=== PATIENT | male | born 1950 | race Caucasian/White ===

== ENCOUNTER 2017-08-05 03:56 | Inpatient (IN) | payer MEDICARE, MEDICAID ==
[~2017-08-05] VITALS: Ht 177.8 cm; Wt 59.1 kg
[~2017-08-05 03:56] MED LIST: FER300L PO; MAGN400C PO; OXYC-658 PO; POLY255P2 PO; TEMA15CA PO; URSO300C2 PO
[2017-08-05] MEDS ORDERED: normal saline 1000ML IV soln IVB ONE ×2 (04:00→07:45)
[2017-08-05 04:28] LABS: BASOPHILS % (AUTO) 0.1 % (0-1); EOSINOPHILS % (AUTO) 0.5 % (0-6); HEMATOCRIT 38.3 % (42.0-52.0); HEMOGLOBIN 13.3 g/dl (14.0-17.9); LYMPHOCYTES # (AUTO) 0.5 X10'3 (1.1-4.8); LYMPHOCYTES % (AUTO) 6.3 % (21-51); MEAN CORPUSCULAR HEMOGLOBIN 32.9 PG (27.0-31.0); MEAN CORPUSCULAR HGB CONC 34.8 % (33.0-36.5); MEAN CORPUSCULAR VOLUME 94.7 FL (78-98); MEAN PLATELET VOLUME 9.4 FL (7.4-10.4); MONOCYTES # (AUTO) 0.7 X10'3 (0-0.9); MONOCYTES % (AUTO) 9.4 % (2-12); NEUTROPHILS # (AUTO) 6.6 X10'3 (1.8-7.7); NEUTROPHILS % (AUTO) 83.7 % (42-75); PLATELET COUNT 130 X10'3 (140-440); RED BLOOD COUNT 4.04 X10'6 (4.70-6.10); RED CELL DISTRIBUTION WIDTH 15.9 % (11.5-14.5); WHITE BLOOD COUNT 7.9 X10'3 (4.5-11.0)
[2017-08-05 04:42] LABS: INR 1.5 INR; PARTIAL THROMBOPLASTIN TIME 37 SECONDS (22-32); PROTHROMBIN TIME 15.7 SECONDS (9.0-12.0)
[2017-08-05 04:54] LABS: ALANINE AMINOTRANSFERASE 99 U/L (12-78); ALBUMIN 2.8 G/DL (3.4-5.0); BILIRUBIN,TOTAL 24.2 MG/DL (0.1-1.0); CALCIUM 9.1 MG/DL (8.5-10.1); LDL CHOLESTEROL 109 MG/DL (50-100); LIPASE 272 U/L (73-393); MAGNESIUM 2.5 MG/DL (1.5-2.4); TOTAL CARBON DIOXIDE 18.8 MMOL/L (24-32)
[2017-08-05 05:15] LABS: ALBUMIN/GLOBULIN RATIO 0.6 (1.1-1.5); ALKALINE PHOSPHATASE 175 IU/L (46-116); ASPARTATE AMINO TRANSFERASE 165 U/L (10-37); CREATININE 2.68 MG/DL (0.60-1.10); GLUCOSE 80 MG/DL (70-104); TOTAL PROTEIN 7.2 G/DL (6.4-8.2); TRIGLYCERIDES 125 MG/DL (20-135); eGFR 24 ML/MIN
[2017-08-05 05:23] LABS: LACTIC SEPSIS 2.3 MMOL/L (0.4-2.0)
[2017-08-05] MEDS ORDERED: normal saline 1000ML IV soln IV ONE (05:25)
[2017-08-05] MEDS ORDERED: piperacillin/tazo 3.375gm/50ml 50 ML IV ONE (05:25)
[2017-08-05] MEDS ORDERED: vancomycin/NS 1 GM ADD-VANTAGE 250 ML IV ONE (05:25)
[2017-08-05 05:45] LABS: ANION GAP 25 (8-16); BLOOD UREA NITROGEN 160 MG/DL (7-18); BUN/CREATININE RATIO 59.7 (5.4-32.0); CHLORIDE 83 MMOL/L (99-107); CHOLESTEROL 91 MG/DL (0-200); HDL CHOLESTEROL 13 MG/DL (35-60); POTASSIUM 5.8 MMOL/L (3.5-5.1); SODIUM 127 MMOL/L (135-145)
[2017-08-05] MEDS ORDERED: sodium polystyrene sulfonate 15gm/60ml oral suspension PO ONE (06:00)
[2017-08-05] MEDS ORDERED: furosemide 40mg/4ml inj IV ONE (06:00)
[2017-08-05] MEDS ORDERED: dextrose 50%-water 50ml dispensing syringe IV ONE (06:00)
[2017-08-05] MEDS ORDERED: calcium chloride 100 MG/1 ML inj IV ONE ×2 (06:00→10:00)
[2017-08-05] MEDS ORDERED: sodium bicarbonate (0.9mEq/ml) 44.6 mEq/50ml syringe IV ONE (06:00)
[2017-08-05] MEDS ORDERED: insulin regular, human 10 units/0.1 ml syringe IV ONE (06:00)
[2017-08-05 07:00] LABS: CLARITY,URINE CLEAR (Clear); COLOR,URINE YELLOW (Yellow); GLUCOSE, URINE NEGATIVE (Neg); KETONES,URINE NEGATIVE (Neg); LEUKOCYTE ESTERASE ,URINE NEGATIVE (Neg); NITRITES, URINE NEGATIVE (Neg); OCCULT BLOOD,URINE SMALL (Neg); PROTEIN,URINE NEGATIVE (Neg); UROBILINOGEN,URINE 0.2 E.U/dL (0.2-1.0)
[2017-08-05 07:07] LABS: UA COLLECTION TYPE URINAL
[2017-08-05 07:08] LABS: BACTERIA,URINE FEW /HPF (Neg); MUCUS STRANDS FEW /LPF (Neg); RBC,URINE NONE SEEN /HPF (0-2); SQUAMOUS EPITHELIAL CELL,UR FEW /LPF (FEW); TRANSITIONAL EPI CELLS,URINE MODERATE /HPF; WBC,URINE 0-4 /HPF (0-4)
[2017-08-05] MEDS ORDERED: potassium Cl 20 mEq SR tablet PO PRN ×2 (08:10)
[2017-08-05] MEDS ORDERED: ondansetron/PF 4mg/2ml inj IV PRN (08:10)
[2017-08-05] MEDS ORDERED: magnesium hydroxide 30ml (MOM) UD suspension PO PRN (08:10)
[2017-08-05] MEDS: K, MAG and/or Phos replacement - Verify level? MC SCH (08:10)
[2017-08-05] MEDS ORDERED: LORazepam 2 mg/ml vial IV PRN (08:20)
[2017-08-05 09:34] LABS: CREATININE,URINE RANDOM 58.9 MG/DL; SODIUM,URINE RANDOM < 15 MEQ/L; TOTAL PROTEIN,URINE RANDOM 31.9 MG/DL
[2017-08-05 09:40] LABS: CLARITY,URINE CLEAR (Clear); COLOR,URINE YELLOW (Yellow); GLUCOSE, URINE NEGATIVE (Neg); KETONES,URINE NEGATIVE (Neg); LEUKOCYTE ESTERASE ,URINE NEGATIVE (Neg); NITRITES, URINE NEGATIVE (Neg); OCCULT BLOOD,URINE TRACE-INTACT (Neg); PROTEIN,URINE NEGATIVE (Neg); UROBILINOGEN,URINE 0.2 E.U/dL (0.2-1.0)
[2017-08-05 09:52] LABS: UA COLLECTION TYPE URINAL
[2017-08-05 09:54] LABS: BACTERIA,URINE FEW /HPF (Neg); MUCUS STRANDS FEW /LPF (Neg); RBC,URINE 0-2 /HPF (0-2); SQUAMOUS EPITHELIAL CELL,UR FEW /LPF (FEW)
[2017-08-05] MEDS ORDERED: sodium bicarbonate (8.4%) 1 mEq/ml syringe ONE (10:00)
[2017-08-05 11:30] VITALS: BP 81/49
[2017-08-05] MEDS: normal saline 1000ml 1,000 ML IV SCH ×2 (13:00→21:26)
[2017-08-05] MEDS ORDERED: OXYC10TA57 PO (13:27)
[2017-08-05 13:44] VITALS: BP 88/75
[2017-08-05] MEDS ORDERED: nitroGLYCERIN 0.4mg SUBLingual tab SL PRN (14:00)
[2017-08-05] MEDS ORDERED: FLU VACC QS2017-18 36MOS UP/PF 60 MCG/0.5 ML SYRINGE IMVAC ONE (14:00)
[2017-08-05] MEDS ORDERED: proCHLORperazine 10 MG/2 ml inj IV PRN (14:00)
[2017-08-05] MEDS ORDERED: OXAZEpam 15mg capsule PO PRN (14:00)
[2017-08-05 16:00] VITALS: BP 87/53
[2017-08-05] MEDS: piperacillin-tazo 2.25gm/50ml 50 ML IV SCH ×2 (16:00→23:57)
[2017-08-05 19:00] VITALS: BP 80/48
[2017-08-05] MEDS: docusate sod 100mg capsule PO SCH (20:00)
[2017-08-05] MEDS: sennosides/docusate sodium tablet PO SCH (20:00)
[2017-08-06 05:29] LABS: BASOPHILS % (AUTO) 0.9 % (0-1); EOSINOPHILS % (AUTO) 1.6 % (0-6); HEMATOCRIT 31.2 % (42.0-52.0); HEMOGLOBIN 10.9 g/dl (14.0-17.9); LYMPHOCYTES # (AUTO) 0.5 X10'3 (1.1-4.8); LYMPHOCYTES % (AUTO) 15.7 % (21-51); MEAN CORPUSCULAR VOLUME 94.3 FL (78-98); MONOCYTES # (AUTO) 0.4 X10'3 (0-0.9); MONOCYTES % (AUTO) 12.3 % (2-12); NEUTROPHILS # (AUTO) 2.1 X10'3 (1.8-7.7); NEUTROPHILS % (AUTO) 69.5 % (42-75); PLATELET COUNT 72 X10'3 (140-440); RED CELL DISTRIBUTION WIDTH 16.1 % (11.5-14.5)
[2017-08-06 06:00] VITALS: BP 96/62
[2017-08-06 06:35] LABS: ALANINE AMINOTRANSFERASE 82 U/L (12-78); ALBUMIN/GLOBULIN RATIO 0.6 (1.1-1.5); ALKALINE PHOSPHATASE 127 IU/L (46-116); ANION GAP 15 (8-16); ASPARTATE AMINO TRANSFERASE 116 U/L (10-37); BILIRUBIN,TOTAL 17.8 MG/DL (0.1-1.0); BLOOD UREA NITROGEN 110 MG/DL (7-18); BUN/CREATININE RATIO 55.8 (5.4-32.0); CALCIUM 8.3 MG/DL (8.5-10.1); CHLORIDE 106 MMOL/L (99-107); CREATININE 1.97 MG/DL (0.60-1.10); GLUCOSE 94 MG/DL (70-104); PHOSPHORUS 4.7 MG/DL (2.3-4.5); SODIUM 137 MMOL/L (135-145); TOTAL CARBON DIOXIDE 15.9 MMOL/L (24-32); TOTAL PROTEIN 5.6 G/DL (6.4-8.2); eGFR 34 ML/MIN
[2017-08-06 06:55] LABS: ACANTHOCYTES 1+; ANISOCYTOSIS 1+; BURR CELLS 2+; PLATELET ESTIMATE DECREASED
[2017-08-06] MEDS: pantoprazole 40mg Tablet.DR PO SCH (07:28)
[2017-08-06] MEDS: LACTOBACILLUS RHAMNOSUS GG 15 billion unit sprinkle caps PO SCH (07:28)
[2017-08-06] MEDS: sennosides/docusate sodium tablet PO SCH ×2 (07:29→19:18)
[2017-08-06] MEDS: docusate sod 100mg capsule PO SCH ×2 (07:29→19:18)
[2017-08-06] MEDS: K, MAG and/or Phos replacement - Verify level? MC SCH (07:31)
[2017-08-06] MEDS: piperacillin-tazo 2.25gm/50ml 50 ML IV SCH ×2 (07:46→15:36)
[2017-08-06] MEDS: normal saline 1000ml 1,000 ML IV SCH (10:46)
[2017-08-06 19:00] VITALS: BP 95/63
[2017-08-07] MEDS: normal saline 1000ml 1,000 ML IV SCH ×2 (00:06→12:41)
[2017-08-07] MEDS: LACTOBACILLUS RHAMNOSUS GG 15 billion unit sprinkle caps PO SCH (07:20)
[2017-08-07] MEDS: pantoprazole 40mg Tablet.DR PO SCH (07:20)
[2017-08-07] MEDS: K, MAG and/or Phos replacement - Verify level? MC SCH (07:21)
[2017-08-07] MEDS: docusate sod 100mg capsule PO SCH ×2 (07:21→20:00)
[2017-08-07] MEDS: sennosides/docusate sodium tablet PO SCH ×2 (07:21→20:00)
[2017-08-07] MEDS: piperacillin-tazo 2.25gm/50ml 50 ML IV SCH ×3 (08:00→16:00)
[2017-08-07] MEDS ORDERED: polyethylene glycol 3350 17gm powd pack PO PRN (08:10)
[2017-08-07 08:21] VITALS: BP 138/77
[2017-08-07] MEDS ORDERED: lactulose 20gm/30ml cup PO ONE (09:30)
[2017-08-07 20:00] VITALS: BP 111/54
[2017-08-08] MEDS: piperacillin-tazo 2.25gm/50ml 50 ML IV SCH ×3 (00:19→16:00)
[2017-08-08] MEDS: normal saline 1000ml 1,000 ML IV SCH ×2 (00:20→16:06)
[2017-08-08] MEDS: morphine 10mg/0.5ml (conc. morphine) oral syringe PO PRN ×3 (04:31→20:32)
[2017-08-08 07:28] VITALS: BP 90/46
[2017-08-08] MEDS: pantoprazole 40mg Tablet.DR PO SCH (07:30)
[2017-08-08] MEDS: LACTOBACILLUS RHAMNOSUS GG 15 billion unit sprinkle caps PO SCH (07:30)
[2017-08-08] MEDS: sennosides/docusate sodium tablet PO SCH ×2 (08:00→20:00)
[2017-08-08] MEDS: docusate sod 100mg capsule PO SCH ×2 (08:00→20:00)
[2017-08-08] MEDS: K, MAG and/or Phos replacement - Verify level? MC SCH (08:00)
[2017-08-08 12:12] VITALS: BP 119/62
[2017-08-08] MEDS ORDERED: LORazepam 2 mg/ml vial IV PRN (12:45)
[2017-08-08 20:00] VITALS: BP 129/49
[2017-08-09] MEDS: morphine 10mg/0.5ml (conc. morphine) oral syringe PO PRN ×7 (01:23→23:49)
[2017-08-09] MEDS: normal saline 1000ml 1,000 ML IV SCH ×2 (05:26→06:05)
[2017-08-09] MEDS: sennosides/docusate sodium tablet PO SCH (06:04)
[2017-08-09] MEDS: K, MAG and/or Phos replacement - Verify level? MC SCH (06:04)
[2017-08-09] MEDS: docusate sod 100mg capsule PO SCH (06:04)
[2017-08-09] MEDS: pantoprazole 40mg Tablet.DR PO SCH (06:05)
[2017-08-09] MEDS: LACTOBACILLUS RHAMNOSUS GG 15 billion unit sprinkle caps PO SCH (06:05)
[2017-08-09] MEDS: piperacillin-tazo 2.25gm/50ml 50 ML IV SCH ×3 (06:06→06:07)
[2017-08-09 07:24] VITALS: BP 85/48
[2017-08-09 11:13] LABS: HBSAG SCREEN Negative (Negative); HEP A AB, IGM Negative (Negative); HEP B CORE AB, IGM Negative (Negative); HEPATITIS C ANTIBODY >11.0 s/co ratio (0.0-0.9)
[2017-08-09 20:00] VITALS: BP 108/55
[2017-08-10] MEDS: morphine 10mg/0.5ml (conc. morphine) oral syringe PO PRN ×5 (02:56→20:39)
[2017-08-10] MEDS: LORazepam 1 MG tablet PO PRN (04:31)
[2017-08-10 07:15] VITALS: BP 87/55
[2017-08-10] MEDS ORDERED: methylnaltrexone br 12mg/0.6ml inj***SubQ only SQ SCH (08:00)
[2017-08-10 18:00] VITALS: BP 93/54
[2017-08-11] MEDS: morphine 10mg/0.5ml (conc. morphine) oral syringe PO PRN ×3 (00:20→21:40)
[2017-08-11 10:27] LABS: ALANINE AMINOTRANSFERASE 78 U/L (12-78); ALBUMIN/GLOBULIN RATIO 0.5 (1.1-1.5); ALKALINE PHOSPHATASE 152 IU/L (46-116); ANION GAP 11 (8-16); ASPARTATE AMINO TRANSFERASE 140 U/L (10-37); BILIRUBIN,TOTAL 18.6 MG/DL (0.1-1.0); BLOOD UREA NITROGEN 63 MG/DL (7-18); BUN/CREATININE RATIO 56.8 (5.4-32.0); CALCIUM 9.2 MG/DL (8.5-10.1); CHLORIDE 117 MMOL/L (99-107); CREATININE 1.11 MG/DL (0.60-1.10); GLUCOSE 93 MG/DL (70-104); POTASSIUM 4.9 MMOL/L (3.5-5.1); SODIUM 146 MMOL/L (135-145); TOTAL CARBON DIOXIDE 18.1 MMOL/L (24-32); TOTAL PROTEIN 5.7 G/DL (6.4-8.2); eGFR 67 ML/MIN
[2017-08-11 20:00] VITALS: BP 91/62
[2017-08-12] MEDS: LORazepam 1 MG tablet PO PRN (02:48)
[2017-08-12 08:00] VITALS: BP 85/55
[2017-08-12] MEDS: morphine 10mg/0.5ml (conc. morphine) oral syringe PO PRN ×2 (11:50→17:40)
[2017-08-12 20:00] VITALS: BP 97/50
[2017-08-13] VITALS: BP 93/59
[2017-08-13] MEDS: morphine 10mg/0.5ml (conc. morphine) oral syringe PO PRN ×2 (05:43→19:53)
[2017-08-13 20:00] VITALS: BP 104/69
[2017-08-13] MEDS: LORazepam 1 MG tablet PO PRN (23:04)
[2017-08-14] MEDS: LORazepam 1 MG tablet PO PRN ×2 (07:10→22:38)
[2017-08-14 07:58] VITALS: BP 79/50
[2017-08-14] MEDS: morphine 10mg/0.5ml (conc. morphine) oral syringe PO PRN ×2 (14:03→22:39)
[2017-08-14 19:00] VITALS: BP 120/70
[2017-08-15] MEDS: LORazepam 1 MG tablet PO PRN ×2 (01:50→05:43)
[2017-08-15] MEDS: morphine 10mg/0.5ml (conc. morphine) oral syringe PO PRN ×4 (01:50→23:04)
[2017-08-15 18:30] VITALS: BP 91/51
[2017-08-16] MEDS: morphine 10mg/0.5ml (conc. morphine) oral syringe PO PRN ×6 (02:09→22:34)
[2017-08-16] MEDS: LORazepam 1 MG tablet PO PRN ×3 (02:09→10:38)
[2017-08-16 08:06] VITALS: BP 81/53
[2017-08-16 20:00] VITALS: BP 105/52
[2017-08-17] MEDS: morphine 10mg/0.5ml (conc. morphine) oral syringe PO PRN ×6 (02:34→22:48)
[2017-08-17 08:00] VITALS: BP 113/63
[2017-08-17] MEDS: LORazepam 1 MG tablet PO PRN ×3 (08:56→22:47)
[2017-08-17 19:30] VITALS: BP 86/54
[2017-08-18 08:30] VITALS: BP 69/43
[2017-08-18] MEDS: morphine 10mg/0.5ml (conc. morphine) oral syringe PO PRN ×3 (09:41→19:10)
[2017-08-18 20:00] VITALS: BP 79/56
[2017-08-19] MEDS: morphine 10mg/0.5ml (conc. morphine) oral syringe PO PRN ×3 (02:12→22:59)
[2017-08-19 07:00] VITALS: BP 73/43
[2017-08-19] MEDS: Protein Smoothie (high protein) 240ml (8oz) cup PO SCH (18:02)
[2017-08-19 19:00] VITALS: BP 89/50
[2017-08-20] MEDS: LORazepam 1 MG tablet PO PRN ×2 (04:28→14:08)
[2017-08-20] MEDS: morphine 10mg/0.5ml (conc. morphine) oral syringe PO PRN ×3 (04:31→23:30)
[2017-08-20 07:00] VITALS: BP 58/37
[2017-08-20] MEDS: Protein Smoothie (high protein) 240ml (8oz) cup PO SCH ×3 (08:00→18:05)
[2017-08-20 12:57] VITALS: BP 63/35
[2017-08-20 18:00] VITALS: BP 113/77
[2017-08-21] MEDS: LORazepam 1 MG tablet PO PRN ×3 (01:08→17:00)
[2017-08-21] MEDS: Protein Smoothie (high protein) 240ml (8oz) cup PO SCH ×3 (08:00→18:32)
[2017-08-21 10:27] VITALS: BP 77/44
[2017-08-21] MEDS: morphine 10mg/0.5ml (conc. morphine) oral syringe PO PRN ×3 (13:07→23:02)
[2017-08-21 19:30] VITALS: BP 79/30
[2017-08-22] MEDS: morphine 10mg/0.5ml (conc. morphine) oral syringe PO PRN ×2 (03:38→23:03)
[2017-08-22] MEDS: Protein Smoothie (high protein) 240ml (8oz) cup PO SCH ×3 (08:00→18:00)
[2017-08-22 08:11] VITALS: BP 88/43
[2017-08-23] MEDS: morphine 10mg/0.5ml (conc. morphine) oral syringe PO PRN ×2 (01:22→10:04)
[2017-08-23 07:58] VITALS: BP 53/31
[2017-08-23] MEDS: Protein Smoothie (high protein) 240ml (8oz) cup PO SCH ×2 (08:00→13:00)
== END 2017-08-23 14:00 | disposition expired | DRG 682 ==
LOC: ER 03:57 → ED HOLD 07:28 → EDBEDREQ 09:48 → SUR 3N 15:49 → MED 3N 08-22 11:54
PROVIDERS: ADMIT Internal Medicine; ATTEND Internal Medicine Critical Care Medicine
DX: N17.9 Acute kidney failure, unspecified (principal); G93.40 Encephalopathy, unspecified; E43 Unspecified severe protein-calorie malnutrition; L89.103 Pressure ulcer of unspecified part of back, stage 3; D69.6 Thrombocytopenia, unspecified; L89.153 Pressure ulcer of sacral region, stage 3; K76.6 Portal hypertension; E87.1 Hypo-osmolality and hyponatremia; Z68.1 Body mass index [BMI] 19.9 or less, adult; E87.5 Hyperkalemia; R62.7 Adult failure to thrive; N18.3 Chronic kidney disease, stage 3 (moderate); K74.60 Unspecified cirrhosis of liver; B19.20 Unspecified viral hepatitis C without hepatic coma; E05.90 Thyrotoxicosis, unspecified without thyrotoxic crisis or storm; D64.9 Anemia, unspecified; F17.210 Nicotine dependence, cigarettes, uncomplicated; Z51.5 Encounter for palliative care; Z59.0 Homelessness; Z93.3 Colostomy status; Z85.72 Personal history of non-Hodgkin lymphomas
CPT/HCPCS: 36415; 71045; 80053; 80061; 81001; 82140; 82570; 83605; 83690; 83735; 83880; 84100; 84145; 84156; 84300; 84439; 84443; 84484; 85025; 85610; 85730; 86705; 86706; 86709; 86803; 87040; 87070; 87077; 87186; 87340; 93005; 96361; 96365; 96366; 96367; 96375; 97162; 97530; 99285; A4315; A4353; A4371; A4421; A6209; A6212; A6213; A6253; A6255; A6449; J1815; J1940; J2060; J2270; J2543; J3370; J7030; Q2037